=== PATIENT | female | born 1930 | race Caucasian/White ===

== ENCOUNTER 2019-05-14 07:09 | Inpatient (IN) | payer MEDICARE ==
[~2019-05-14] VITALS: Ht 170.2 cm; Wt 51.0 kg
[2019-05-14] VITALS (29 sets, daily range): BP systolic 81–171; BP diastolic 30–72
[2019-05-14] MEDS ORDERED: ACETAMINOPHEN 325MG TABLET PO STA (07:18)
[2019-05-14] MEDS ORDERED: SODIUM CHLORIDE 0.9% 1000ML BAG (SEPSIS BOLUS) IV ONE (07:30)
[2019-05-14] MEDS ORDERED: PIPERACILLIN/TAZ 3.375G PREMIX 50 ML IV ONE (07:30)
[2019-05-14] MEDS ORDERED: VANCOMYCIN 1 G PREMIX 200 ML IV ONE (07:30)
[2019-05-14 07:31] LABS: HEMATOCRIT. 27.4 % (36.0-48.0); HEMOGLOBIN. 9.1 g/dL (12.0-16.0); MEAN CORPUSCULAR HEMOGLOBIN 30.7 pg (28.0-32.0); MEAN CORPUSCULAR VOLUME 92.1 fL (81.0-99.0); MEAN PLATELET VOLUME 8.5 fl (7.4-10.4); PLATELET 245 x1000/uL (130-400); RED BLOOD CELL COUNT 2.98 mill/uL (4.2-5.4); RED CELL DISTRIBUTION WIDTH 17.9 % (11.6-14.6)
[2019-05-14 07:38] LABS: PROTHROMBIN TIME 10.1 sec (9.6-11.0)
[2019-05-14 07:39] LABS: CHLORIDE 90 mEq/L (98-107)
[2019-05-14] MEDS ORDERED: ACETAMINOPHEN 650MG SUPP PR ONE (07:45)
[2019-05-14 08:16] LABS: PLATELET ESTIMATE NORMAL
[2019-05-14 08:29] LABS: BG BASE EXCESS 4.5 mmol/L (-2.0-2.0); BG CARBOXYHEMOGLOBIN 0.3 % (0.5-1.5); BG DEOXYHEMOGLOBIN 0.6 % (0.0-5.0); BG FRACTION INSPIRED OXYGEN 100; BG HCO3 ACT 28.2 mmol/L (22.0-26.0); BG METHEMOGLOBIN 0.3 % (0.0-1.5); BG OXYGEN SATURATION 99.4 % (92.0-98.5); BG OXYHEMOGLOBIN 98.8 % (94.0-97.0); BG PCO2 38.3 mmHg (35.0-45.0); BG PH 7.485 (7.350-7.450); BG PO2 248.3 mmHg (75.0-100.0); BG SAMPLE SITE LEFT RADIAL; BG TOTAL HEMOGLOBIN 9.6 g/dL (12.0-18.0); BG VENT MODE MASK - NRB
[2019-05-14 08:44] LABS: CLARITY URINE CLEAR (CLEAR); COLOR URINE YELLOW (YELLOW); KETONES URINE TRACE (NEGATIVE); LEUKOCYTE ESTERASE URINE 1+ (NEGATIVE); NITRITE URINE NEGATIVE (NEGATIVE); OCCULT BLOOD URINE NEGATIVE (NEGATIVE); PH URINE 5.5 (4.5-8.0); PROTEIN URINE 1+ (NEGATIVE); SPECIFIC GRAVITY URINE 1.018 (1.005-1.030); UROBILINOGEN URINE 0.2 E.U./dL (0.2-1.0)
[2019-05-14] MEDS ORDERED: FENTANYL CITRATE/PF 50MCG/ML 2ML VIAL IV ONE (08:45)
[2019-05-14] MEDS ORDERED: FENTANYL CITRATE/PF 500 MCG in SODIUM CHLORIDE 0.9% 40 ML IV PRN ×2 (08:45→09:30)
[2019-05-14] MEDS ORDERED: PROPOFOL 10MG/ML 100ML 100 ML IV ONE (08:45)
[2019-05-14] MEDS ORDERED: ROCURONIUM BROMIDE 10MG/ML VIAL 5ML IV ONE (08:45)
[2019-05-14] MEDS ORDERED: ETOMIDATE 2MG/ML 10ML VIAL IV ONE ×2 (08:45→17:00)
[2019-05-14] MEDS ORDERED: DOCUSATE SODIUM 100MG CAPSULE PO PRN (11:00)
[2019-05-14] MEDS ORDERED: GUAIFENESIN 200MG/10ML SUGAR FREE UDC PO PRN (11:00)
[2019-05-14] MEDS ORDERED: LORAZEPAM 0.5MG TABLET PO PRN (11:00)
[2019-05-14] MEDS ORDERED: ONDANSETRON HCL 4MG/2ML INJ IV PRN (11:00)
[2019-05-14] MEDS ORDERED: NA PHOS,M-B/NA PHOS,DI-BA ENEMA 118ML PR PRN (11:00)
[2019-05-14] MEDS ORDERED: MAGNESIUM/ALUMINUM HYDROXIDE/SIMETHICONE 30ML UDC PO PRN (11:00)
[2019-05-14] MEDS ORDERED: DEXTROSE 50% WATER 50ML SYRINGE IV PRN ×2 (11:00→21:00)
[2019-05-14] MEDS ORDERED: HYDROCODONE/ACETAMINOPHEN 5/325MG TABLET PO PRN (11:00)
[2019-05-14] MEDS ORDERED: PIPERACILLIN/TAZOBACTAM 3.375 G in DEXT 5% WATER 100 ML IV SCH (11:00)
[2019-05-14] MEDS ORDERED: SODIUM CHLORIDE 0.9% 1,000 ML IV SCH (11:00)
[2019-05-14 11:33] LABS: BG CARBOXYHEMOGLOBIN 0.3 % (0.5-1.5); BG DEOXYHEMOGLOBIN 1.4 % (0.0-5.0); BG FRACTION INSPIRED OXYGEN 70; BG HCO3 ACT 29.4 mmol/L (22.0-26.0); BG METHEMOGLOBIN 0.3 % (0.0-1.5); BG OXYGEN SATURATION 98.6 % (92.0-98.5); BG PCO2 37.5 mmHg (35.0-45.0); BG PH 7.512 (7.350-7.450); BG PO2 129.2 mmHg (75.0-100.0); BG SAMPLE SITE LEFT BRACHIAL; BG TIDAL VOLUME(mL) 450 mL; BG TOTAL HEMOGLOBIN 8.9 g/dL (12.0-18.0); BG VENT MODE VENT - A/C; BG VENT RATE 16 set
[2019-05-14 13:38] LABS: BG BASE EXCESS 7.1 mmol/L (-2.0-2.0); BG CARBOXYHEMOGLOBIN 0.3 % (0.5-1.5); BG DEOXYHEMOGLOBIN 4.3 % (0.0-5.0); BG FRACTION INSPIRED OXYGEN 45; BG HCO3 ACT 30.2 mmol/L (22.0-26.0); BG METHEMOGLOBIN 0.4 % (0.0-1.5); BG OXYGEN SATURATION 95.7 % (92.0-98.5); BG PCO2 36.8 mmHg (35.0-45.0); BG PH 7.532 (7.350-7.450); BG PO2 76.3 mmHg (75.0-100.0); BG SAMPLE SITE LEFT BRACHIAL; BG TIDAL VOLUME(mL) 450 mL; BG TOTAL HEMOGLOBIN 9.3 g/dL (12.0-18.0); BG VENT MODE VENT - A/C; BG VENT RATE 14 set
[2019-05-14] MEDS: ACETAMINOPHEN 650MG SUPP PR PRN (14:11)
[2019-05-14 14:35] LABS: *BENZODIAZEPINES SCREEN URINE NEGATIVE (NEGATIVE); *COCAINE SCREEN URINE NEGATIVE (NEGATIVE); METHADONE URINE SCREEN NEGATIVE (NEGATIVE); OPIATES URINE SCREEN PRESUMTIVE POSITIVE (NEGATIVE)
[2019-05-14 14:36] LABS: CANNABINOID URINE SCREEN NEGATIVE (NEGATIVE); PHENCYCLIDINE URINE SCREEN NEGATIVE (NEGATIVE)
[2019-05-14 14:39] LABS: *AMPHETAMINES SCREEN URINE NEGATIVE (NEGATIVE); *BARBITURATES SCREEN URINE NEGATIVE (NEGATIVE)
[2019-05-14] MEDS ORDERED: METF-815 PO (15:33)
[2019-05-14] MEDS ORDERED: ATOR20TA65 PO (15:33)
[2019-05-14] MEDS ORDERED: ASPI-1158 PO (15:33)
[2019-05-14] MEDS ORDERED: DIPH-684 PO (15:33)
[2019-05-14] MEDS ORDERED: HYDR-4134 PO (15:33)
[2019-05-14] MEDS ORDERED: LEVO150T8 PO (15:33)
[2019-05-14] MEDS ORDERED: MELA1TAB28 MT (15:33)
[2019-05-14] MEDS: PROPOFOL 10MG/ML 100ML 100 ML IV PRN (16:07)
[2019-05-14] MEDS: PANTOPRAZOLE SODIUM 40 MG/VIAL IV SCH (16:07)
[2019-05-14] MEDS ORDERED: METO25TA6 GT (16:30)
[2019-05-14] MEDS ORDERED: VITA1CAP16 PO (16:30)
[2019-05-14] MEDS ORDERED: MAGN400T26 GT (16:30)
[2019-05-14] MEDS ORDERED: IPRA3AMP9 HHN (16:30)
[2019-05-14] MEDS: PIPERACILLIN/TAZOBACTAM 2.25 G in DEXTROSE 5% WATER 50 ML IV SCH ×2 (16:45→22:03)
[2019-05-14] MEDS: IPRATROPIUM/ALBUTEROL 0.5-3(2.5)MG/3ML NEB NEB SCH ×2 (17:24→20:06)
[2019-05-14] MEDS ORDERED: BLOOD SUGAR DIAGNOSTIC STRIP TEST SCH ×2 (17:50→21:00)
[2019-05-14] MEDS ORDERED: NOREPINEPHRINE 4 MG in DEXT 5% WATER 246 ML IV PRN (18:00)
[2019-05-14] MEDS ORDERED: INSULIN LISPRO 100 UNITS/ML SUBCUT SCH (18:20)
[2019-05-14] MEDS: DEXT 5%/0.9% NACL 1,000 ML IV SCH (21:55)
[2019-05-14 22:10] LABS: CREATINE KINASE 81 IU/L (26-192)
[2019-05-14 22:11] LABS: CREATINE KINASE MB FRACTION 4.2 ng/mL (0.5-3.6)
[2019-05-15] VITALS (88 sets, daily range): BP systolic 74–180; BP diastolic 40–114
[2019-05-15] MEDS: BLOOD SUGAR DIAGNOSTIC STRIP TEST SCH ×5 (00:13→21:46)
[2019-05-15] MEDS: INSULIN LISPRO 100 UNITS/ML SUBCUT SCH ×6 (00:25→21:52)
[2019-05-15] MEDS: IPRATROPIUM/ALBUTEROL 0.5-3(2.5)MG/3ML NEB NEB SCH ×4 (01:34→20:45)
[2019-05-15] MEDS: PROPOFOL 10MG/ML 100ML 100 ML IV PRN ×3 (02:05→17:58)
[2019-05-15] MEDS: VANCOMYCIN 750 MG PREMIX 150 ML IV SCH ×2 (04:19→21:51)
[2019-05-15 05:45] LABS: HEMATOCRIT. 22.8 % (36.0-48.0); HEMOGLOBIN. 7.7 g/dL (12.0-16.0); MEAN CORPUSCULAR VOLUME 91.4 fL (81.0-99.0); MEAN PLATELET VOLUME 8.8 fl (7.4-10.4); PLATELET 235 x1000/uL (130-400); RED BLOOD CELL COUNT 2.49 mill/uL (4.2-5.4); RED CELL DISTRIBUTION WIDTH 17.9 % (11.6-14.6)
[2019-05-15 05:48] LABS: CHLORIDE 99 mEq/L (98-107)
[2019-05-15] MEDS: PIPERACILLIN/TAZOBACTAM 2.25 G in DEXTROSE 5% WATER 50 ML IV SCH ×4 (05:55→23:30)
[2019-05-15 05:56] LABS: T4 FREE 0.48 ng/dL (0.76-1.46)
[2019-05-15 05:57] LABS: CREATINE KINASE 85 IU/L (26-192)
[2019-05-15 05:58] LABS: CREATINE KINASE MB FRACTION 3.4 ng/mL (0.5-3.6); LDL CHOLESTEROL 26 mg/dL (5-100)
[2019-05-15 06:01] LABS: HDL CHOLESTEROL 18 mg/dL (40-59)
[2019-05-15 08:02] LABS: BG CARBOXYHEMOGLOBIN 0.2 % (0.5-1.5); BG DEOXYHEMOGLOBIN 1.7 % (0.0-5.0); BG FRACTION INSPIRED OXYGEN 45; BG HCO3 ACT 30.1 mmol/L (22.0-26.0); BG METHEMOGLOBIN 1.2 % (0.0-1.5); BG OXYGEN SATURATION 98.3 % (92.0-98.5); BG OXYHEMOGLOBIN 96.9 % (94.0-97.0); BG PCO2 36.8 mmHg (35.0-45.0); BG PH 7.531 (7.350-7.450); BG PO2 150.8 mmHg (75.0-100.0); BG SAMPLE SITE RIGHT RADIAL; BG TIDAL VOLUME(mL) 400 mL; BG TOTAL HEMOGLOBIN 8.2 g/dL (12.0-18.0); BG VENT MODE VENT - A/C; BG VENT RATE 16 set
[2019-05-15 08:56] LABS: PLATELET ESTIMATE NORMAL
[2019-05-15] MEDS: PANTOPRAZOLE SODIUM 40 MG/VIAL IV SCH (08:58)
[2019-05-15] MEDS ORDERED: FAMOTIDINE 20MG/2ML VIAL IV SCH (09:00)
[2019-05-15] MEDS: DEXT 5%/0.9% NACL 1,000 ML IV SCH (09:07)
[2019-05-15] MEDS ORDERED: POTASSIUM CHLORIDE INJ 40 MEQ in DEXT 5% WATER 250 ML IV ONE (10:30)
[2019-05-15] MEDS ORDERED: POTASSIUM CHLORIDE INJ 40 MEQ in DEXT 5% WATER 250 ML IV SCH (12:00)
[2019-05-15 12:51] LABS: HEMATOCRIT 21.4 % (36.0-48.0); HEMOGLOBIN 7.3 g/dL (12.0-16.0)
[2019-05-15] MEDS: LEVOTHYROXINE SODIUM 50MCG TABLET PO SCH (13:24)
[2019-05-15] MEDS: SODIUM CHLORIDE 0.45% 1,000 ML IV SCH (14:26)
[2019-05-15] MEDS: FLUCONAZOLE 200 MG/100ML BAG 100 ML IV SCH (16:09)
[2019-05-15] MEDS: NYSTATIN POWDER 15GM TOP SCH (21:54)
[2019-05-16] VITALS (76 sets, daily range): BP systolic 88–195; BP diastolic 45–121
[2019-05-16] MEDS: PROPOFOL 10MG/ML 100ML 100 ML IV PRN ×3 (01:22→21:00)
[2019-05-16] MEDS: IPRATROPIUM/ALBUTEROL 0.5-3(2.5)MG/3ML NEB NEB SCH ×4 (02:16→19:58)
[2019-05-16 05:34] LABS: BASOPHILS % 0.5 % (0.0-2.0); EOSINOPHILS % 3.5 % (0.0-5.0); HEMOGLOBIN. 9.5 g/dL (12.0-16.0); LYMPHOCYTES % 12.4 % (20.0-50.0); MEAN CORPUSCULAR VOLUME 91.6 fL (81.0-99.0); MEAN PLATELET VOLUME 8.4 fl (7.4-10.4); MONOCYTES % 8.5 % (2.0-8.0); NEUTROPHILS % 75.1 % (40.0-76.0); PLATELET 233 x1000/uL (130-400); RED BLOOD CELL COUNT 3.06 mill/uL (4.2-5.4); RED CELL DISTRIBUTION WIDTH 17.3 % (11.6-14.6)
[2019-05-16 05:39] LABS: CHLORIDE 105 mEq/L (98-107)
[2019-05-16] MEDS: SODIUM CHLORIDE 0.45% 1,000 ML IV SCH ×2 (05:55→13:59)
[2019-05-16] MEDS: PIPERACILLIN/TAZOBACTAM 2.25 G in DEXTROSE 5% WATER 50 ML IV SCH ×3 (06:20→18:32)
[2019-05-16] MEDS: BLOOD SUGAR DIAGNOSTIC STRIP TEST SCH ×4 (07:50→21:19)
[2019-05-16 08:17] LABS: BG BASE EXCESS 2.3 mmol/L (-2.0-2.0); BG CARBOXYHEMOGLOBIN 0.3 % (0.5-1.5); BG DEOXYHEMOGLOBIN 2.1 % (0.0-5.0); BG FRACTION INSPIRED OXYGEN 35; BG HCO3 ACT 25.2 mmol/L (22.0-26.0); BG METHEMOGLOBIN 0.1 % (0.0-1.5); BG OXYGEN SATURATION 97.9 % (92.0-98.5); BG OXYHEMOGLOBIN 97.5 % (94.0-97.0); BG PCO2 33.1 mmHg (35.0-45.0); BG PO2 110.9 mmHg (75.0-100.0); BG SAMPLE SITE RIGHT RADIAL; BG TIDAL VOLUME(mL) 400 mL; BG TOTAL HEMOGLOBIN 9.9 g/dL (12.0-18.0); BG VENT MODE VENT - A/C; BG VENT RATE 16 set
[2019-05-16] MEDS: PANTOPRAZOLE SODIUM 40 MG/VIAL IV SCH (09:10)
[2019-05-16] MEDS: NYSTATIN POWDER 15GM TOP SCH (09:11)
[2019-05-16] MEDS: INSULIN LISPRO 100 UNITS/ML SUBCUT SCH ×4 (09:29→21:00)
[2019-05-16] MEDS: LEVOTHYROXINE SODIUM 50MCG TABLET PO SCH (09:53)
[2019-05-16] MEDS: IPRATROPIUM/ALBUTEROL 0.5-3(2.5)MG/3ML NEB NEB PRN (11:33)
[2019-05-16] MEDS: FLUCONAZOLE 200 MG/100ML BAG 100 ML IV SCH (15:21)
[2019-05-16] MEDS: VANCOMYCIN 750 MG PREMIX 150 ML IV SCH (15:31)
[2019-05-16] MEDS: ACETAMINOPHEN 650MG SUPP PR PRN (18:48)
[2019-05-17] VITALS (39 sets, daily range): BP systolic 90–188; BP diastolic 42–98
[2019-05-17] MEDS: PIPERACILLIN/TAZOBACTAM 2.25 G in DEXTROSE 5% WATER 50 ML IV SCH ×5 (01:27→23:35)
[2019-05-17] MEDS: NYSTATIN POWDER 15GM TOP SCH ×3 (01:28→21:36)
[2019-05-17] MEDS: IPRATROPIUM/ALBUTEROL 0.5-3(2.5)MG/3ML NEB NEB SCH ×4 (01:58→20:05)
[2019-05-17] MEDS: PROPOFOL 10MG/ML 100ML 100 ML IV PRN ×2 (04:59→15:14)
[2019-05-17] MEDS: MORPHINE SULFATE 2 MG/ML CPJ (NOT FOR IM USE) IV PRN (05:13)
[2019-05-17 05:43] LABS: BASOPHILS % 0.6 % (0.0-2.0); EOSINOPHILS % 7.6 % (0.0-5.0); HEMATOCRIT. 27.1 % (36.0-48.0); LYMPHOCYTES % 17.7 % (20.0-50.0); MEAN CORPUSCULAR HEMOGLOBIN 30.9 pg (28.0-32.0); MEAN CORPUSCULAR VOLUME 92.6 fL (81.0-99.0); MONOCYTES % 9.2 % (2.0-8.0); NEUTROPHILS % 64.9 % (40.0-76.0); PLATELET 223 x1000/uL (130-400); RED BLOOD CELL COUNT 2.92 mill/uL (4.2-5.4); RED CELL DISTRIBUTION WIDTH 17.8 % (11.6-14.6)
[2019-05-17 05:44] LABS: CHLORIDE 107 mEq/L (98-107)
[2019-05-17 08:07] LABS: BG BASE EXCESS 1.7 mmol/L (-2.0-2.0); BG CARBOXYHEMOGLOBIN 0.3 % (0.5-1.5); BG DEOXYHEMOGLOBIN 2.4 % (0.0-5.0); BG METHEMOGLOBIN 0.1 % (0.0-1.5); BG OXYGEN SATURATION 97.6 % (92.0-98.5); BG OXYHEMOGLOBIN 97.2 % (94.0-97.0); BG PCO2 29.8 mmHg (35.0-45.0); BG PH 7.524 (7.350-7.450); BG PO2 104.8 mmHg (75.0-100.0); BG SAMPLE SITE RIGHT RADIAL; BG TIDAL VOLUME(mL) 400 mL; BG TOTAL HEMOGLOBIN 10.1 g/dL (12.0-18.0); BG VENT MODE VENT - A/C; BG VENT RATE 16 set
[2019-05-17] MEDS: BLOOD SUGAR DIAGNOSTIC STRIP TEST SCH ×4 (08:29→21:36)
[2019-05-17] MEDS: INSULIN LISPRO 100 UNITS/ML SUBCUT SCH ×4 (08:31→21:00)
[2019-05-17] MEDS: PANTOPRAZOLE SODIUM 40 MG/VIAL IV SCH (08:33)
[2019-05-17] MEDS: LEVOTHYROXINE SODIUM 50MCG TABLET PO SCH (08:33)
[2019-05-17] MEDS ORDERED: LACTULOSE 20G/30ML UDC PO NR (10:15)
[2019-05-17] MEDS: VANCOMYCIN 750 MG PREMIX 150 ML IV SCH (11:16)
[2019-05-17] MEDS: DOCUSATE SODIUM 250MG CAPSULE PO SCH (11:30)
[2019-05-17 11:56] LABS: BG BASE EXCESS 0.2 mmol/L (-2.0-2.0); BG CARBOXYHEMOGLOBIN 0.3 % (0.5-1.5); BG DEOXYHEMOGLOBIN 2.1 % (0.0-5.0); BG HCO3 ACT 23.5 mmol/L (22.0-26.0); BG METHEMOGLOBIN 0.2 % (0.0-1.5); BG OXYGEN SATURATION 97.9 % (92.0-98.5); BG OXYHEMOGLOBIN 97.4 % (94.0-97.0); BG PCO2 33.1 mmHg (35.0-45.0); BG PH 7.469 (7.350-7.450); BG PO2 114.4 mmHg (75.0-100.0); BG SAMPLE SITE RIGHT RADIAL; BG TIDAL VOLUME(mL) 400 mL; BG TOTAL HEMOGLOBIN 10.5 g/dL (12.0-18.0); BG VENT MODE VENT - A/C; BG VENT RATE 16 set
[2019-05-17 13:47] LABS: BG BASE EXCESS -0.2 mmol/L (-2.0-2.0); BG CARBOXYHEMOGLOBIN 0.3 % (0.5-1.5); BG DEOXYHEMOGLOBIN 1.8 % (0.0-5.0); BG FRACTION INSPIRED OXYGEN 35; BG HCO3 ACT 22.9 mmol/L (22.0-26.0); BG METHEMOGLOBIN 0.2 % (0.0-1.5); BG OXYGEN SATURATION 98.2 % (92.0-98.5); BG OXYHEMOGLOBIN 97.7 % (94.0-97.0); BG PCO2 32.4 mmHg (35.0-45.0); BG PH 7.468 (7.350-7.450); BG PRESSURE SUPPORT 10; BG SAMPLE SITE RIGHT RADIAL; BG TOTAL HEMOGLOBIN 11.1 g/dL (12.0-18.0); BG VENT MODE VENT - CPAP
[2019-05-17] MEDS ORDERED: PROPOFOL 10MG/ML 100ML 100 ML IV PRN (14:00)
[2019-05-17] MEDS: FLUCONAZOLE 200 MG/100ML BAG 100 ML IV SCH (15:48)
[2019-05-17] MEDS: SODIUM CHLORIDE 0.45% 1,000 ML IV SCH (15:50)
[2019-05-17] MEDS: CLONIDINE 0.1MG TABLET PO PRN (21:43)
[2019-05-17] MEDS: ACETYLCYSTEINE 100MG/ML 10% VIAL 4ML INH SCH (23:49)
[2019-05-17] MEDS: IPRATROPIUM/ALBUTEROL 0.5-3(2.5)MG/3ML NEB NEB PRN (23:49)
[2019-05-18] VITALS (41 sets, daily range): BP systolic 92–197; BP diastolic 41–112
[2019-05-18] MEDS: IPRATROPIUM/ALBUTEROL 0.5-3(2.5)MG/3ML NEB NEB SCH ×4 (03:03→20:42)
[2019-05-18] MEDS: PIPERACILLIN/TAZOBACTAM 2.25 G in DEXTROSE 5% WATER 50 ML IV SCH ×4 (05:35→22:38)
[2019-05-18] MEDS: MORPHINE SULFATE 2 MG/ML CPJ (NOT FOR IM USE) IV PRN (05:47)
[2019-05-18 06:20] LABS: HEMATOCRIT. 31.4 % (36.0-48.0); HEMOGLOBIN. 10.6 g/dL (12.0-16.0); MEAN CORPUSCULAR HEMOGLOBIN 30.9 pg (28.0-32.0); MEAN CORPUSCULAR VOLUME 91.8 fL (81.0-99.0); RED BLOOD CELL COUNT 3.42 mill/uL (4.2-5.4); RED CELL DISTRIBUTION WIDTH 17.4 % (11.6-14.6)
[2019-05-18 06:28] LABS: CHLORIDE 107 mEq/L (98-107)
[2019-05-18] MEDS: ACETYLCYSTEINE 100MG/ML 10% VIAL 4ML INH SCH ×2 (07:29→13:22)
[2019-05-18] MEDS: BLOOD SUGAR DIAGNOSTIC STRIP TEST SCH ×4 (07:50→21:00)
[2019-05-18] MEDS: SODIUM CHLORIDE 0.45% 1,000 ML IV SCH (07:55)
[2019-05-18] MEDS: DOCUSATE SODIUM 250MG CAPSULE PO SCH (08:16)
[2019-05-18] MEDS: LEVOTHYROXINE SODIUM 50MCG TABLET PO SCH (08:16)
[2019-05-18] MEDS: PANTOPRAZOLE SODIUM 40 MG/VIAL IV SCH (08:16)
[2019-05-18] MEDS: NYSTATIN POWDER 15GM TOP SCH ×2 (08:16→22:35)
[2019-05-18] MEDS: INSULIN LISPRO 100 UNITS/ML SUBCUT SCH ×4 (08:20→22:33)
[2019-05-18 09:10] LABS: BG BASE EXCESS 0.9 mmol/L (-2.0-2.0); BG CARBOXYHEMOGLOBIN 0.3 % (0.5-1.5); BG FRACTION INSPIRED OXYGEN 35; BG HCO3 ACT 23.1 mmol/L (22.0-26.0); BG METHEMOGLOBIN 0.3 % (0.0-1.5); BG OXYHEMOGLOBIN 98.4 % (94.0-97.0); BG PCO2 29.3 mmHg (35.0-45.0); BG PH 7.515 (7.350-7.450); BG PO2 161.9 mmHg (75.0-100.0); BG SAMPLE SITE RIGHT RADIAL; BG TIDAL VOLUME(mL) 400 mL; BG VENT MODE VENT - A/C; BG VENT RATE 16 set
[2019-05-18 10:17] LABS: PLATELET ESTIMATE NORMAL
[2019-05-18 10:19] LABS: PLATELET 266 x1000/uL (130-400)
[2019-05-18] MEDS: CLONIDINE 0.1MG TABLET PO PRN ×2 (12:21→20:05)
[2019-05-18] MEDS: VANCOMYCIN 1 G PREMIX 200 ML IV SCH (13:30)
[2019-05-18 14:16] LABS: BG BASE EXCESS -2.2 mmol/L (-2.0-2.0); BG CARBOXYHEMOGLOBIN 0.3 % (0.5-1.5); BG DEOXYHEMOGLOBIN 1.5 % (0.0-5.0); BG FRACTION INSPIRED OXYGEN 35; BG HCO3 ACT 22.7 mmol/L (22.0-26.0); BG METHEMOGLOBIN 0.3 % (0.0-1.5); BG OXYGEN SATURATION 98.5 % (92.0-98.5); BG OXYHEMOGLOBIN 97.9 % (94.0-97.0); BG PCO2 39.2 mmHg (35.0-45.0); BG PO2 141.6 mmHg (75.0-100.0); BG PRESSURE SUPPORT 10; BG SAMPLE SITE RIGHT RADIAL; BG TOTAL HEMOGLOBIN 11.7 g/dL (12.0-18.0); BG VENT MODE VENT - CPAP
[2019-05-18] MEDS: FLUCONAZOLE 200 MG/100ML BAG 100 ML IV SCH (15:10)
[2019-05-18] MEDS: ACETAMINOPHEN 325MG TABLET PO PRN (20:05)
[2019-05-18] MEDS ORDERED: QUETIAPINE FUMARATE 50MG TABLET PO SCH (22:30)
[2019-05-19] VITALS (16 sets, daily range): BP systolic 86–149; BP diastolic 38–84
[2019-05-19] MEDS: ACETYLCYSTEINE 100MG/ML 10% VIAL 4ML INH SCH ×3 (00:25→15:12)
[2019-05-19] MEDS: IPRATROPIUM/ALBUTEROL 0.5-3(2.5)MG/3ML NEB NEB SCH ×5 (00:25→20:41)
[2019-05-19] MEDS: SODIUM CHLORIDE 0.45% 1,000 ML IV SCH ×2 (01:29→17:15)
[2019-05-19 04:59] LABS: HEMATOCRIT. 29.3 % (36.0-48.0); HEMOGLOBIN. 9.8 g/dL (12.0-16.0); MEAN CORPUSCULAR HEMOGLOBIN 30.7 pg (28.0-32.0); MEAN CORPUSCULAR VOLUME 92.5 fL (81.0-99.0); MEAN PLATELET VOLUME 8.1 fl (7.4-10.4); PLATELET 276 x1000/uL (130-400); RED BLOOD CELL COUNT 3.17 mill/uL (4.2-5.4); RED CELL DISTRIBUTION WIDTH 17.5 % (11.6-14.6)
[2019-05-19 05:17] LABS: CHLORIDE 109 mEq/L (98-107)
[2019-05-19] MEDS: PIPERACILLIN/TAZOBACTAM 2.25 G in DEXTROSE 5% WATER 50 ML IV SCH ×4 (06:22→22:04)
[2019-05-19 07:11] LABS: PLATELET ESTIMATE NORMAL
[2019-05-19] MEDS: DOCUSATE SODIUM 250MG CAPSULE PO SCH (08:28)
[2019-05-19] MEDS: LEVOTHYROXINE SODIUM 50MCG TABLET PO SCH (08:28)
[2019-05-19] MEDS: PANTOPRAZOLE SODIUM 40 MG/VIAL IV SCH (08:29)
[2019-05-19] MEDS: NYSTATIN POWDER 15GM TOP SCH ×2 (08:29→23:47)
[2019-05-19] MEDS: BLOOD SUGAR DIAGNOSTIC STRIP TEST SCH ×3 (08:35→20:56)
[2019-05-19] MEDS: INSULIN LISPRO 100 UNITS/ML SUBCUT SCH ×4 (08:35→20:53)
[2019-05-19] MEDS ORDERED: QUETIAPINE FUMARATE 50MG TABLET PO SCH (09:30)
[2019-05-19] MEDS: LACTULOSE 20G/30ML UDC GT SCH (09:36)
[2019-05-19] MEDS: HALOPERIDOL LACTATE 5MG/ML VIAL IM PRN (10:34)
[2019-05-19] MEDS: VANCOMYCIN 1 G PREMIX 200 ML IV SCH (15:14)
[2019-05-19] MEDS: FLUCONAZOLE 200 MG/100ML BAG 100 ML IV SCH (15:23)
[2019-05-19] MEDS: METRONIDAZOLE 500MG TABLET PO SCH (21:57)
[2019-05-20] VITALS (9 sets, daily range): BP systolic 122–153; BP diastolic 45–85
[2019-05-20] MEDS: IPRATROPIUM/ALBUTEROL 0.5-3(2.5)MG/3ML NEB NEB SCH ×6 (01:02→20:11)
[2019-05-20] MEDS: ACETYLCYSTEINE 100MG/ML 10% VIAL 4ML INH SCH ×3 (01:02→15:49)
[2019-05-20] MEDS: SODIUM CHLORIDE 0.45% 1,000 ML IV SCH ×2 (01:27→09:01)
[2019-05-20] MEDS: HALOPERIDOL LACTATE 5MG/ML VIAL IM PRN ×2 (03:31→14:03)
[2019-05-20] MEDS: PIPERACILLIN/TAZOBACTAM 2.25 G in DEXTROSE 5% WATER 50 ML IV SCH ×3 (04:05→17:39)
[2019-05-20] MEDS: METRONIDAZOLE 500MG TABLET PO SCH ×3 (05:39→21:27)
[2019-05-20] MEDS: LEVOTHYROXINE SODIUM 50MCG TABLET PO SCH (05:39)
[2019-05-20 05:53] LABS: HEMATOCRIT. 29.6 % (36.0-48.0); HEMOGLOBIN. 9.9 g/dL (12.0-16.0); MEAN CORPUSCULAR HEMOGLOBIN 30.9 pg (28.0-32.0); MEAN CORPUSCULAR VOLUME 92.3 fL (81.0-99.0); MEAN PLATELET VOLUME 8.2 fl (7.4-10.4); PLATELET 320 x1000/uL (130-400); RED BLOOD CELL COUNT 3.21 mill/uL (4.2-5.4); RED CELL DISTRIBUTION WIDTH 17.4 % (11.6-14.6)
[2019-05-20 06:02] LABS: CHLORIDE 105 mEq/L (98-107)
[2019-05-20] MEDS: BLOOD SUGAR DIAGNOSTIC STRIP TEST SCH ×4 (06:52→21:37)
[2019-05-20] MEDS: INSULIN LISPRO 100 UNITS/ML SUBCUT SCH ×4 (08:56→22:04)
[2019-05-20] MEDS: PANTOPRAZOLE SODIUM 40 MG/VIAL IV SCH (08:56)
[2019-05-20] MEDS: LACTULOSE 20G/30ML UDC GT SCH (08:56)
[2019-05-20] MEDS: NYSTATIN POWDER 15GM TOP SCH (09:00)
[2019-05-20] MEDS: DOCUSATE SODIUM 250MG CAPSULE PO SCH (09:00)
[2019-05-20] MEDS ORDERED: QUETIAPINE FUMARATE 50MG TABLET PO SCH (09:00)
[2019-05-20] MEDS: MORPHINE SULFATE 2 MG/ML CPJ (NOT FOR IM USE) IV PRN ×2 (09:08→20:59)
[2019-05-20 11:45] LABS: PLATELET ESTIMATE NORMAL
[2019-05-20] MEDS: VANCOMYCIN 1 G PREMIX 200 ML IV SCH (13:13)
[2019-05-20] MEDS: FLUCONAZOLE 200 MG/100ML BAG 100 ML IV SCH (14:52)
[2019-05-20 17:03] LABS: BG CARBOXYHEMOGLOBIN 0.2 % (0.5-1.5); BG DEOXYHEMOGLOBIN 3.5 % (0.0-5.0); BG FRACTION INSPIRED OXYGEN 28; BG HCO3 ACT 26.6 mmol/L (22.0-26.0); BG METHEMOGLOBIN 0.2 % (0.0-1.5); BG OXYGEN SATURATION 96.5 % (92.0-98.5); BG OXYHEMOGLOBIN 96.1 % (94.0-97.0); BG PCO2 37.2 mmHg (35.0-45.0); BG PH 7.472 (7.350-7.450); BG PO2 85.9 mmHg (75.0-100.0); BG SAMPLE SITE RIGHT RADIAL; BG VENT MODE NASAL CANNULA
[2019-05-20] MEDS: DIPHENHYDRAMINE 50MG/ML VIAL IV PRN (21:27)
[2019-05-21] VITALS (7 sets, daily range): BP systolic 149–171; BP diastolic 61–87
[2019-05-21] MEDS: ACETYLCYSTEINE 100MG/ML 10% VIAL 4ML INH SCH ×4 (00:12→21:11)
[2019-05-21] MEDS: IPRATROPIUM/ALBUTEROL 0.5-3(2.5)MG/3ML NEB NEB SCH ×6 (00:13→21:11)
[2019-05-21] MEDS: PIPERACILLIN/TAZOBACTAM 2.25 G in DEXTROSE 5% WATER 50 ML IV SCH ×5 (01:10→22:21)
[2019-05-21] MEDS: NYSTATIN POWDER 15GM TOP SCH ×3 (01:10→21:16)
[2019-05-21] MEDS: SODIUM CHLORIDE 0.45% 1,000 ML IV SCH (02:32)
[2019-05-21] MEDS: LEVOTHYROXINE SODIUM 50MCG TABLET PO SCH (06:17)
[2019-05-21] MEDS: METRONIDAZOLE 500MG TABLET PO SCH ×3 (06:17→22:22)
[2019-05-21] MEDS: BLOOD SUGAR DIAGNOSTIC STRIP TEST SCH ×4 (06:32→21:16)
[2019-05-21 06:40] LABS: HEMATOCRIT 32.1 % (36.0-48.0); HEMOGLOBIN 10.6 g/dL (12.0-16.0); MEAN CORPUSCULAR HEMOGLOBIN 30.8 pg (28.0-32.0); PLATELET 328 x1000/uL (130-400); RED BLOOD CELL COUNT 3.45 mill/uL (4.2-5.4); RED CELL DISTRIBUTION WIDTH 17.5 % (11.6-14.6)
[2019-05-21 07:07] LABS: CHLORIDE 99 mEq/L (98-107)
[2019-05-21] MEDS: PANTOPRAZOLE SODIUM 40 MG/VIAL IV SCH (08:21)
[2019-05-21] MEDS: INSULIN LISPRO 100 UNITS/ML SUBCUT SCH ×4 (08:25→21:16)
[2019-05-21] MEDS: LACTULOSE 20G/30ML UDC GT SCH (08:30)
[2019-05-21] MEDS: DOCUSATE SODIUM 250MG CAPSULE PO SCH (08:45)
[2019-05-21] MEDS: DIPHENHYDRAMINE 50MG/ML VIAL IV PRN ×2 (09:27→20:02)
[2019-05-21] MEDS: MORPHINE SULFATE 2 MG/ML CPJ (NOT FOR IM USE) IV PRN ×2 (10:59→16:25)
[2019-05-21] MEDS: AMLODIPINE 5MG TABLET PO SCH (11:37)
[2019-05-21] MEDS: VANCOMYCIN 1 G PREMIX 200 ML IV SCH (15:30)
[2019-05-21] MEDS: FLUCONAZOLE 200 MG/100ML BAG 100 ML IV SCH (16:22)
[2019-05-21] MEDS: ACETAMINOPHEN 325MG TABLET PO PRN (21:17)
[2019-05-21] MEDS: LORAZEPAM 2MG/ML CPJ IV PRN (22:21)
[2019-05-21] MEDS: CLONIDINE 0.1MG TABLET PO PRN (22:22)
[2019-05-22] VITALS (8 sets, daily range): BP systolic 86–137; BP diastolic 41–80
[2019-05-22] MEDS: IPRATROPIUM/ALBUTEROL 0.5-3(2.5)MG/3ML NEB NEB SCH ×6 (00:27→21:11)
[2019-05-22] MEDS: ACETYLCYSTEINE 100MG/ML 10% VIAL 4ML INH SCH ×2 (00:27→08:13)
[2019-05-22] MEDS: PIPERACILLIN/TAZOBACTAM 2.25 G in DEXTROSE 5% WATER 50 ML IV SCH ×3 (05:25→18:28)
[2019-05-22] MEDS: LEVOTHYROXINE SODIUM 50MCG TABLET PO SCH (06:22)
[2019-05-22] MEDS: METRONIDAZOLE 500MG TABLET PO SCH ×3 (06:23→21:06)
[2019-05-22] MEDS: BLOOD SUGAR DIAGNOSTIC STRIP TEST SCH ×4 (06:24→21:02)
[2019-05-22 06:56] LABS: BASOPHILS % 0.5 % (0.0-2.0); EOSINOPHILS % 5.1 % (0.0-5.0); HEMOGLOBIN. 10.8 g/dL (12.0-16.0); LYMPHOCYTES % 9.3 % (20.0-50.0); MEAN CORPUSCULAR HEMOGLOBIN 30.6 pg (28.0-32.0); MEAN CORPUSCULAR VOLUME 93.1 fL (81.0-99.0); MEAN PLATELET VOLUME 7.9 fl (7.4-10.4); MONOCYTES % 13.5 % (2.0-8.0); NEUTROPHILS % 71.6 % (40.0-76.0); PLATELET 290 x1000/uL (130-400); RED BLOOD CELL COUNT 3.54 mill/uL (4.2-5.4); RED CELL DISTRIBUTION WIDTH 17.9 % (11.6-14.6)
[2019-05-22 07:14] LABS: CHLORIDE 102 mEq/L (98-107)
[2019-05-22] MEDS: PANTOPRAZOLE SODIUM 40 MG/VIAL IV SCH (09:01)
[2019-05-22] MEDS: LACTULOSE 20G/30ML UDC GT SCH (09:01)
[2019-05-22] MEDS: DOCUSATE SODIUM 250MG CAPSULE PO SCH (09:02)
[2019-05-22] MEDS: AMLODIPINE 5MG TABLET PO SCH (09:02)
[2019-05-22] MEDS: NYSTATIN POWDER 15GM TOP SCH ×2 (09:02→21:02)
[2019-05-22] MEDS: INSULIN LISPRO 100 UNITS/ML SUBCUT SCH ×4 (09:05→21:00)
[2019-05-22] MEDS: LORAZEPAM 2MG/ML CPJ IV PRN ×3 (09:11→21:03)
[2019-05-22] MEDS: FLUCONAZOLE 200 MG/100ML BAG 100 ML IV SCH (14:46)
== END 2019-05-22 23:30 | DRG 870 ==
LOC: ER 07:54 → CVICU 08:59 → EDBEDREQSVC 09:03 → EDBEDREQ 09:03 → EDBEDREQTM 09:03 → SUPCPDRO 10:50 → ENRESERV 12:44 → 3WST 05-19 11:54 → 6WST 05-21 13:04
PROVIDERS: ADMIT Internal Medicine; ATTEND Internal Medicine
PROC: 5A1955Z Respiratory Ventilation, Greater than 96 Consecutive Hours (ICD-10-PCS; principal; 2019-05-14)
PROC: 0BH17EZ Insertion of Endotracheal Airway into Trachea, Via Natural or Artificial Opening (ICD-10-PCS; 2019-05-14)
PROC: 06HY33Z Insertion of Infusion Device into Lower Vein, Percutaneous Approach (ICD-10-PCS; 2019-05-14)
PROC: B54BZZZ Ultrasonography of Right Lower Extremity Veins (ICD-10-PCS; 2019-05-14)
PROC: 30233N1 Transfusion of Nonautologous Red Blood Cells into Peripheral Vein, Percutaneous Approach (ICD-10-PCS; 2019-05-15)
DX: A41.9 Sepsis, unspecified organism (principal); G93.41 Metabolic encephalopathy; J96.01 Acute respiratory failure with hypoxia; J69.0 Pneumonitis due to inhalation of food and vomit; E87.1 Hypo-osmolality and hyponatremia; N39.0 Urinary tract infection, site not specified; E87.3 Alkalosis; K92.2 Gastrointestinal hemorrhage, unspecified; E87.2 Acidosis; E87.5 Hyperkalemia; N18.9 Chronic kidney disease, unspecified; E11.22 Type 2 diabetes mellitus with diabetic chronic kidney disease; E03.9 Hypothyroidism, unspecified; I12.9 Hypertensive chronic kidney disease with stage 1 through stage 4 chronic kidney disease, or unspecified chronic kidney disease; R47.02 Dysphasia; E11.65 Type 2 diabetes mellitus with hyperglycemia; E78.00 Pure hypercholesterolemia, unspecified; E78.5 Hyperlipidemia, unspecified; D50.0 Iron deficiency anemia secondary to blood loss (chronic); R13.10 Dysphagia, unspecified; Z66 Do not resuscitate; K21.9 Gastro-esophageal reflux disease without esophagitis; Z93.1 Gastrostomy status; Z87.01 Personal history of pneumonia (recurrent)
CPT/HCPCS: 31500; 36415; 36556; 36600; 51702; 71045; 80048; 80061; 80202; 80305; 81003; 82140; 82375; 82550; 82553; 82805; 82962; 83605; 84145; 84439; 84443; 84478; 84484; 85014; 85018; 85027; 86850; 86900; 86920; 87070; 87804; 93005; 93306; 93970; 94002; 94003; 94640; 96365; 96367; 96368; 96375; 99291; A6261; C9113; J1200; J1450; J1630; J1815; J2060; J2270; J2543; J2704; J3010; J3370; J3480; J3490; J7030; J7040; J7042; J7060; J7608; J7620; P9016; A4315